=== PATIENT | male | born 1985 | race African-American/Black ===

== ENCOUNTER → 2019-08-22 | Emergency (ER) | payer OTHER ==
[~2019-08-22] MED LIST: PHENERGAN25 M1 ORAL; ZANTAC150 MG ORAL; nka
--- NOTE | 2019-08-22 11:36 | Emergency Room Report ---
History of Present Illness General Source: Patient Present Illness HPI Patient complains that he felt dizzy with start new work out with new supplement. The patient presents with 2 weeks of starting to workout. Recently he feels dizziness when he is sits up and stands. It does not last long. He denies loss of consciousness. It is not world spinning. He denies chest pain or palpitations. He started a new supplement that is causing him to urinate quite a bit. He has no family history or history in himself of diabetes. There is a family history of hypertension but he does not take any medications for this. The patient stopped smoking 2 weeks ago. He denies alcohol or THC. No fevers, chills, sore throat, chest pain, palpitations, nausea, vomiting, diarrhea, dysuria, abdominal pain, shortness of breath, joint pain, rashes, depression, anxiety, visual changes, headache. Allergies: Uncoded Allergies: nka (Allergy, 12/09/12) Patient History Past Medical History: see triage record Social History: Denies: smoking, alcohol use, drug use Social History Narrative From home Reviewed Nursing Documentation: PMH: Agreed; PSxH: Agreed Review of Systems All Other Systems: negative except mentioned in HPI Physical Exam Patient is orthostatic by pulse. Sp02 EP Interpretation: reviewed, normal General Appearance: well appearing, no apparent distress, GCS 15 Head: normocephalic Eyes: bilateral eye normal inspection, bilateral eye PERRL, bilateral eye EOMI ENT: moist mucus membranes Neck: supple Respiratory: lungs clear, normal breath sounds Cardiovascular #1: regular rate, rhythm, no edema Cardiovascular #2: 2+ radial (R) Gastrointestinal: normal inspection, normal bowel sounds, non tender, no mass, non-distended Musculoskeletal: back normal, normal range of motion, gait/station normal Neurologic: alert, motor strength/tone normal, relations coordinator III-XII nml as tested, oriented x3, sensory intact, cerebellar normal, speech normal Psychiatric: mood/affect normal Skin: no rash, warm/dry Medical Decision Making Diagnostic Impression: Primary Impression: Orthostatic dizziness Additional Impression: Dehydration ER Course Patient presents with dizziness when he sits up. Differential includes dehydration, new onset diabetes, electrolyte imbalance, cardiac anomaly amongst others. Evaluation with EKG, chest x-ray and labs. Orthostatics performed. Patient to receive IV hydration. Further treatment based on evaluation and reevaluation. EKG without injury. Nonspecific ST-T wave changes with normal QT interval. Chest x-ray clear with normal heart size. Labs remarkable for minimally elevated CPK. Patient improved with IV hydration. Discussed findings and results with patient. Discussed the need for outpatient follow-up. Patient stable for outpatient observation and treatment. EKG Diagnostic Results Rate: normal Rhythm: NSR ST Segments: no acute changes - Nonspecific ST-T wave changes Rhythm Strip Diag. Results EP Interpretation: yes Rhythm: NSR, no PVC's, no ectopy Chest X-Ray Diagnostic Results Chest X-Ray Diagnostic Results : Chest X-Ray Ordered: Yes # of Views/Limited/Complete: 1 View Indication: Other EP Interpretation: Yes Interpretation: no consolidation, no effusion, no pneumothorax Impression: No acute disease Electronically Signed by: Electronically signed by Ankur Pham MD Status: improved Disposition: HOME, SELF-CARE Condition: Improved Referrals: Bal KEE,REFERRING (PCP) Ankur Pham MD Aug 22, 2019 11:36
--- NOTE | 2019-08-22 15:46 | Diagnostic Imaging Report ---
Indication: Dyspnea Comparison: None A single view chest radiograph was obtained. Findings: Cardiomediastinal appearance is within normal limits for age. The lungs are clear. Pulmonary vascularity is appropriate. The diaphragmatic contour is smooth and costophrenic angles are sharp. No pleural effusions are identified. The bones are unremarkable. Impression: No acute findings
== END | disposition home or self-care (01) ==
LOC: EMR 00:05
DX: R42 Dizziness and giddiness (principal); E86.0 Dehydration
CPT/HCPCS: 71045; Z7502; 99283